=== PATIENT | female | born 1955 | race Caucasian/White ===

== ENCOUNTER 2020-06-12 16:13 | Observation (INO) ==
--- NOTE | 2020-06-12 16:49 | Emergency Department Note ---
History of Present Illness General Chief complaint: Visual Disturbance Stated complaint: VISION PROBLEMS Time Seen by Provider: 06/12/20 16:27 Source: patient Mode of arrival: ambulatory Limitations: no limitations History of Present Illness Maximum Pain Intensity: 0 This patient comes in after having visual issues since Monday. She says "my vision is doing strange things". She says that when she looked at a coworker it looked like they were colder squiggles near her head. When she is driving down the road and sees trees she says it moves them so they look like they are in the middle of the road. This occurs in both eyes and also each eye individually when she closes them so it is both monocular and binocular. No eye pain or other physical complaints. No headache or head trauma. She said on the way to the hospital she saw for hospitals. So it has been blurry to. She cannot identify any visual field cuts or particular aspect but it seems like his entire visual cruz. No history of similar. She wears reading glasses but not contacts. She is had no recent illness or fever or chills. No trauma. No focal numbness weakness. No difficulty speaking or swallowing. Normal gait. No neck pain or stiffness. No chest pain or shortness of breath or cough. No known exposure to COVID. No nausea or vomiting. She did have one episode of diarrhea. She says that if she closes her eyes and shakes her head she the symptoms do get better temporarily. She does have history of glaucoma but has had no eye pain. She is on no blood thinners. She talked her box spring maker in [place] who recommend she come here for neurologic work-up. Home Medications Home Medications Medication Instructions Recorded Confirmed Type aspirin [Aspir-81] 81 mg PO DAILY 06/12/20 06/12/20 History empagliflozin [Jardiance] 25 mg PO DAILY 06/12/20 06/12/20 History latanoprost 1 drp OPB PM 06/12/20 06/12/20 History levothyroxine 50 mcg PO DAILY 06/12/20 06/12/20 History lisinopril 20 mg PO DAILY 06/12/20 06/12/20 History metformin [Glucophage XR] 1,000 mg PO BID 06/12/20 06/12/20 History rosuvastatin [Crestor] 5 mg PO DAILY 06/12/20 06/12/20 History timolol maleate [Timoptic] 1 drp OPB DAILY 06/12/20 06/12/20 History Allergies Allergy/AdvReac Type Severity Reaction Status Date / Time codeine AdvReac Mild lethargy Verified 06/12/20 19:40 Past Med/Surg History Medical History Diabetic retinopathy Glaucoma HLD (hyperlipidemia) HTN (hypertension) Hypothyroidism T2DM (type 2 diabetes mellitus) Surgical History History of appendectomy History of cataract extraction History of colonoscopy with polypectomy History of tubal ligation Family History Mother Diabetes Congestive heart failure Brother Diabetes Grandfather (Maternal) Colorectal cancer Social History (Updated 06/12/20 @ 19:23 by Elizabet Ventura PA-C) Smoking Status: Never smoker Hx Alcohol Use: No Hx Substance Use: No Preferred Language: Persian Communication Ability: Effective Beliefs That Will Affect Care: None marital status: Current Living Situation: Family Current Living Situation Comment: son and grandchild Other Information That Helps Us Care for You: No Feels Safe at Home: Yes Assistive Devices: Denture - Upper and Glasses Immunizations: Past medical historyglaucoma, retinopathy. Diabetes for which she is on oral meds. Hypertension hypothyroidism. Social history-she does not smoke drink or use drugs. 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 Review of Systems A total of 10 systems reviewed and were otherwise negative Physical Exam Vital Signs Vital Signs - 24 hr 06/12/20 16:15 06/12/20 17:31 06/12/20 17:40 Temperature 36.8 C Temperature Source Oral Pulse Rate 83 76 77 Pulse Rate from SpO2 Sensor 76 77 Respiratory Rate 18 18 20 Blood Pressure 158/93 H 153/93 H Blood Pressure Mean 114 125 Pulse Oximetry 100 98 99 Oxygen Delivery Method Room Air Sepsis Recent Fever Within 48 Hours No Sepsis New/Unexplained Change in Mental Status No Sepsis Action Taken by Nursing No Action Required 06/12/20 17:50 06/12/20 18:00 06/12/20 18:10 Temperature Temperature Source Pulse Rate 77 77 80 Pulse Rate from SpO2 Sensor 77 77 80 Respiratory Rate 15 18 21 Blood Pressure 131/70 Blood Pressure Mean 102 Pulse Oximetry 98 98 98 Oxygen Delivery Method Sepsis Recent Fever Within 48 Hours Sepsis New/Unexplained Change in Mental Status Sepsis Action Taken by Nursing 06/12/20 18:31 06/12/20 18:40 06/12/20 18:50 Temperature Temperature Source Pulse Rate 77 75 Pulse Rate from SpO2 Sensor 80 76 75 Respiratory Rate 18 15 Blood Pressure Blood Pressure Mean Pulse Oximetry 96 97 97 Oxygen Delivery Method Sepsis Recent Fever Within 48 Hours Sepsis New/Unexplained Change in Mental Status Sepsis Action Taken by Nursing General: Well developed well nourished middle-age female who appears in no acute distress, breathing comfortably on room air. Normal speech HEENT: Normal cephalic atraumatic. Pupils are equal round and reactive to light. Extraocular movements are intact. Oropharynx is pink with moist mucous membranes. No swelling of the mouth lips or tongue. There is no injection of the sclera. The lids are normal bilaterally. When I check her visual cruz th ere appears to be no visual field cut. Neck: Supple with a midline trachea. No meningeal signs or stiffness, no JVD or bruits. No Stridor. Chest: Clear to auscultation bilaterally. No wheezes or rhonchi. No increased work of breathing. Heart: Regular rate and rhythm without murmurs or gallops. Abdomen: Soft nontender, nondistended without rebound guarding or rigidity. Extremities: No cyanosis clubbing or edema. No calf tenderness or assymetry Spine/Back. Non tender to palpation. No CVA tenderness Skin: Good turgor without rashes. Neurologic exam: Cranial nerves two through 12 are intact. Motor and sensation are intact and symmetrical throughout. [id number] is intact. No tremor Course Administered Medications Insulin Aspart (Insulin Aspart 100 Units/Ml 3 Ml Pen) 0 units SC ACHS LUCAS Stop: 07/12/20 20:59 Last Admin: 06/12/20 22:19 Dose: Not Given Documented by: [id number] Cosigned by: [id number] Latanoprost (Latanoprost 0.005% Op Soln 2.5 Ml Btl) 1 drops OPB PM LUCAS Stop: 07/12/20 20:59 Last Admin: 06/12/20 22:30 Dose: 1 drops Documented by: [id number] Discontinued Medications Aspirin (Aspirin 81 Mg Chew) 324 mg PO NOW STA Stop: 06/12/20 18:15 Last Admin: 06/12/20 18:19 Dose: 324 mg Documented by: [id number] Gadobutrol (Gadobutrol 65ml Vial) 6.3 ml IV ONCE ONE Stop: 06/12/20 22:08 Last Admin: 06/12/20 22:08 Dose: 6.3 ml Documented by: [id number] Potassium Chloride (Potassium Chloride 20 Meq Tabcr) 40 meq PO NOW STA Stop: 06/12/20 19:31 Last Admin: 06/12/20 19:43 Dose: 40 meq Documented by: [id number] Medical Decision Making Differential Diagnosis CVA, intracranial process, electrolyte or metabolic abnormality, glaucoma, eye disorder Medical Records Attestation: I reviewed the patient's medical records. Home Medications Current Medication List: was personally reviewed by me Laboratory Data Attestation: I reviewed the patient's lab results. Result diagrams: 06/12/20 16:50 06/12/20 16:50 Lab Results 06/12/20 06/12/20 06/12/20 Range/Units 16:50 16:50 16:50 WBC 6.00 (4.8-10.8) K/uL RBC 4.22 (4.2-5.4) M/uL Hgb 12.3 (12.0-16.0) g/dL Hct 38.0 (37-47) % MCV 90.0 (80-100) fL MCH 29.1 (25-34) pg MCHC 32.4 (32-36) g/dL RDW Std Deviation 43.6 (36.4-46.3) fL RDW Coeff of Adriana 13.3 (11.5-14.5) % Plt Count 266 (130-400) K/uL MPV 9.8 (7.4-10.4) fL Immature Gran % (Auto) 0.2 % Neut % (Auto) 55.1 % Lymph % (Auto) 34.5 % Crenshaw % (Auto) 8.3 % Eos % (Auto) 1.7 % Baso % (Auto) 0.2 % Neut # (Auto) 3.31 (1.4-6.5) K/uL Lymph # (Auto) 2.07 (1.2-3.4) K/uL Crenshaw # (Auto) 0.50 (0.11-0.59) K/uL Eos # (Auto) 0.10 (0-0.5) K/uL Baso # (Auto) 0.01 (0-0.2) K/uL Immature Gran # (Auto) 0.01 (0.00-0.02) K/uL ESR 41 H (0-21) mm/hr PT 10.3 (9.0-12.0) Seconds INR 1.0 (0.9-1.1) APTT 27.2 (21.0-31.0) Seconds PTT Ratio 1.0 Sodium (136-145) mmol/L Potassium (3.5-5.1) mmol/L Chloride (98-107) mmol/L Carbon Dioxide (21-32) mmol/L Anion Gap (3-11) BUN (7-18) mg/dl Creatinine (0.6-1.2) mg/dl Est Cr Clr Drug Dosing ml/min Est GFR ( Amer) Est GFR (Non-Af Amer) BUN/Creatinine Ratio (-20) Glucose (70-99) mg/dl Calcium (8.5-10.1) mg/dl Magnesium (1.8-2.4) mg/dl Total Bilirubin (0.2-1) mg/dl AST (15-37) U/L ALT (12-78) U/L Alkaline Phosphatase (45-117) U/L Troponin I (0-0.045) ng/ml C-Reactive Protein (0-0.29) mg/dl Total Protein (6.4-8.2) gm/dl Albumin (3.4-5.0) gm/dl Globulin (2.5-4.0) gm/dl Albumin/Globulin Ratio (0.9-2) TSH (0.300-4.500) uIu/ml 06/12/20 06/12/20 Range/Units 16:50 16:50 WBC (4.8-10.8) K/uL RBC (4.2-5.4) M/uL Hgb (12.0-16.0) g/dL Hct (37-47) % MCV (80-100) fL MCH (25-34) pg MCHC (32-36) g/dL RDW Std Deviation (36.4-46.3) fL RDW Coeff of Adriana (11.5-14.5) % Plt Count (130-400) K/uL MPV (7.4-10.4) fL Immature Gran % (Auto) % Neut % (Auto) % Lymph % (Auto) % Crenshaw % (Auto) % Eos % (Auto) % Baso % (Auto) % Neut # (Auto) (1.4-6.5) K/uL Lymph # (Auto) (1.2-3.4) K/uL Crenshaw # (Auto) (0.11-0.59) K/uL Eos # (Auto) (0-0.5) K/uL Baso # (Auto) (0-0.2) K/uL Immature Gran # (Auto) (0.00-0.02) K/uL ESR (0-21) mm/hr PT (9.0-12.0) Seconds INR (0.9-1.1) APTT (21.0-31.0) Seconds PTT Ratio Sodium 139 (136-145) mmol/L Potassium 3.4 L (3.5-5.1) mmol/L Chloride 103 (98-107) mmol/L Carbon Dioxide 29 (21-32) mmol/L Anion Gap 7.0 (3-11) BUN 10 (7-18) mg/dl Creatinine 0.93 (0.6-1.2) mg/dl Est Cr Clr Drug Dosing 56.5 ml/min Est GFR ( Amer) 74.7 Est GFR (Non-Af Amer) 64.5 BUN/Creatinine Ratio 11.0 (10-20) Glucose 108 H (70-99) mg/dl Calcium 9.9 (8.5-10.1) mg/dl Magnesium 2.0 (1.8-2.4) mg/dl Total Bilirubin 0.4 (0.2-1) mg/dl AST 18 (15-37) U/L ALT 18 (12-78) U/L Alkaline Phosphatase 85 (45-117) U/L Troponin I 0.103 H* (0-0.045) ng/ml C-Reactive Protein < 0.29 (0-0.29) mg/dl Total Protein 7.8 (6.4-8.2) gm/dl Albumin 3.5 (3.4-5.0) gm/dl Globulin 4.3 H (2.5-4.0) gm/dl Albumin/Globulin Ratio 0.8 L (0.9-2) TSH 2.450 (0.300-4.500) uIu/ml ECG Data Attestation: I personally reviewed and interpreted this ECG as follows: Indication: + other (Neurologic symptoms) Rate (beats per minute): 78 Rhythm: + normal sinus ECG Intervals/blocks: + Normal QRS, + Normal QT and + Normal VT ECG [place]: + Normal ECG ST segments: + Normal ST segments ECG Findings: no PACs and no PVCs Comparison ECG Date: no prior available MDM Narrative The patient comes in scribed above she has had visual changes that are both monocular and binocular. She says she feels fine at present. She has no other neurologic deficits. She appears to have no visual field cut. She has glaucoma but her eyes appear to be normal. IV access was established. EKG multiple blood testing was obtained. CAT scan of her head was also obtained. She was reassessed frequently. I did measure eye pressure was not elevated at 21 bilaterally. She has no fever or white count to suggest infection. She has an nonischemic normal-appearing EKG however her troponin was mildly elevated. CAT scan of her head is unremarkable and she has a normal neurologic exam. She has no acute electrolyte or metabolic abnormalities. I talked her at length, given her mildly elevated troponin as well as her visual change I do think she needs to be admitted/observe for further cardiac/neurologic work-up. She may ultimately MRI and also trending of her troponin. I did give her aspirin 324 mg chewable here. I will consult [facility] team to see her in the ER for these measures. Impression & Plan Visual changes, Elevated troponin, HTN (hypertension), T2DM (type 2 diabetes mellitus) Discharge Plan Visit Data Chief Complaint: Visual Disturbance Stated Complaint: VISION PROBLEMS ED Provider: Brent Godwin Discharge Problem: Visual changes, Elevated troponin, HTN (hypertension), T2DM (type 2 diabetes mellitus) Patient Disposition: Admitted As Inpatient Discharge Instructions Interventions: ED Discharge Assessment Last Done: 06/12/20 19:32 Discharge Problem: HTN (hypertension) Qualifiers: Hypertension type: essential hypertension Qualified Code(s): I10 - Essential (primary) hypertension T2DM (type 2 diabetes mellitus) Qualifiers: 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
[2020-06-12 16:57] LABS: Basophils # (auto) 0.01 K/uL (0-0.2); Basophils % (auto) 0.2 %; Eosinophils % (auto) 1.7 %; Hemoglobin 12.3 g/dL (12.0-16.0); Immature Granulocytes # (auto) 0.01 K/uL (0.00-0.02); Immature Granulocytes % (auto) 0.2 %; Lymphocytes # (auto) 2.07 K/uL (1.2-3.4); Lymphocytes % (auto) 34.5 %; Mean Corpuscular Hemoglobin 29.1 pg (25-34); Mean Corpuscular Hgb Conc 32.4 g/dL (32-36); Mean Platelet Volume 9.8 fL (7.4-10.4); Monocytes % (auto) 8.3 %; Neutrophils # (auto) 3.31 K/uL (1.4-6.5); Neutrophils % (auto) 55.1 %; Platelet Count 266 K/uL (130-400); RDW Coefficient of Variation 13.3 % (11.5-14.5); RDW Standard Deviation 43.6 fL (36.4-46.3); Red Blood Count 4.22 M/uL (4.2-5.4)
[2020-06-12 17:09] LABS: Partial Thromboplastin Time 27.2 Seconds (21.0-31.0); Prothrombin Time 10.3 Seconds (9.0-12.0)
--- NOTE | 2020-06-12 17:10 | CT Scan Report ---
CT head/brain wo con CLINICAL HISTORY: Stroke evaluation VISUAL DISTURBANCES COMPARISON STUDY: No previous studies for comparison. TECHNIQUE: Axial CT of the brain is performed from the vertex to the skull base. IV contrast was not administered for this examination. A dose lowering technique was utilized adhering to the principles of ALARA. CT DOSE: 638.56 mGycm FINDINGS: No intra or extra-axial mass lesions are visualized. There is no CT evidence of acute cortical infarc tion. There is no evidence of midline shift. There is no acute hemorrhage. No calvarial fractures ar e visualized. There are patchy white matter hypodensities likely on a small vessel basis. There is no evidence of pathologic ventricular dilatation. There is no evidence of acute sinusitis IMPRESSION: No acute intracranial findings ACT 112: Negative or not required by law. Electronically signed by: Jose Elias Guzman M.D. 06/12/2020 5:09 PM
[2020-06-12 17:14] LABS: Albumin Level 3.5 gm/dl (3.4-5.0); Calcium 9.9 mg/dl (8.5-10.1); Creatinine Clr Calc Pharmacy 56.5 ml/min; Est GFR (African American) 74.7; Est GFR (Non-African American) 64.5; Potassium 3.4 mmol/L (3.5-5.1)
[2020-06-12 17:29] LABS: Albumin Globulin Ratio 0.8 (0.9-2); Bilirubin,Total 0.4 mg/dl (0.2-1); Globulin 4.3 gm/dl (2.5-4.0); Total Protein 7.8 gm/dl (6.4-8.2); Troponin I 0.103 ng/ml (0-0.045)
[2020-06-12] MEDS ORDERED: ASPIRIN 81 MG CHEW PO STA (18:14)
--- NOTE | 2020-06-12 19:23 | History & Physical Report ---
Date of Service June 12, 2020 Assessment & Plan (1) Visual changes: This is a 64-year-old female who has significant past medical history of T2DM, diabetic retinopathy, glaucoma, HTN, HLD, hypothyroidism who presents to ED secondary to visual change x2 days. Complaints consistent with blurred vision and diplopia. No visual field deficit elicited. No eye pain, otorrhea, redness. Her pressures okay. Currently denies sx. admit to tele obtain MRI brain if abnormal consult Neuro obtain a1c/lipid panel in a.m. 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 Hold metformin and Jardiance BSG 108 - place on novolog protocol (4) HTN (hypertension): Blood pressure control Continue lisinopril (5) HLD (hyperlipidemia): Continue statin (6) Glaucoma: Continue timolol and latanoprost (7) Hypothyroidism: Continue levothyroxine Check TSH (8) DVT prophylaxis: SCD/Teds Disposition: admit to tele Follow up: PCP Dr. Alvarenga upon discharge along with close ophthalmology follow-up Patient seen and examined in collaboration with Dr. Jim, please see addendum History of Present Illness Chief Complaint: Visual change x 2 days. Primary Care Provider: Gale Alvarenga, This is a 64-year-old female who has significant past medical history of T2DM, diabetic retinopathy, glaucoma, HTN, HLD, hypothyroidism who presents to ED secondary to visual change x2 days. She elicits for the past 2 days she has had off and on visual changes. She notices them mostly whenever she is driving down the road. She feels like the trees on the left-hand side change color. She also says the trees then move to the middle of the road. It occurs in both eyes and each eye when she tries to close one eye. Denies trauma. She also elicits blurry vision. She also complains of blurry and double vision. She states when she shakes her head symptoms go away. They come and they go. She does not typically elicit them at rest or if ambulating. She has never similar symptoms in the past. She does have history of diabetic retinopathy and glaucoma this appears different. She did call her eye. Dr. Larisa Garcia who recommended ER evaluation. Other than visual changes she has been in her usual state of health. When she does get the visual change she has been monitoring her blood sugar which was in the 90s. She denies any recent fever, chills, sweats, lightheadedness, dizziness, change in hearing, eye pain, excessive eye tearing or redness, chest pain, shortness breath, cough, nausea, vomiting, abdominal pain, change her bowel or urinary habits. In ED patient remained hemodynamically stable. Per ED provider her eye pressures were within normal limits. There were no visual field cuts or deficits. Currently patient denies any visual changes. Her CBC was generally unremarkable, mild elevation ESR 41, K 3.4, glucose 108, elevated troponin 0.103. She had a head CT which was negative for any acute cranial abnormality. In ED she received ASA 3251. He is recommended for inpatient mission due to new onset and acute visual changes as well as elevated troponin despite EKG c hanges or chest pain. Allergies Allergy/AdvReac Type Severity Reaction Status Date / Time codeine AdvReac Mild lethargy Verified 06/12/20 19:40 Home Medications Home Medications Medication Instructions Recorded Confirmed Type aspirin [Aspir-81] 81 mg PO DAILY 06/12/20 06/12/20 History empagliflozin [Jardiance] 25 mg PO DAILY 06/12/20 06/12/20 History latanoprost 1 drp OPB PM 06/12/20 06/12/20 History levothyroxine 50 mcg PO DAILY 06/12/20 06/12/20 History lisinopril 20 mg PO DAILY 06/12/20 06/12/20 History metformin [Glucophage XR] 1,000 mg PO BID 06/12/20 06/12/20 History rosuvastatin [Crestor] 5 mg PO DAILY 06/12/20 06/12/20 History timolol maleate [Timoptic] 1 drp OPB DAILY 06/12/20 06/12/20 History Past Med/Surg History Medical History Diabetic retinopathy Glaucoma HLD (hyperlipidemia) HTN (hypertension) Hypothyroidism T2DM (type 2 diabetes mellitus) Surgical History History of appendectomy History of cataract extraction History of colonoscopy with polypectomy History of tubal ligation Family History Mother Diabetes Congestive heart failure Brother Diabetes Grandfather (Maternal) Colorectal cancer Social History (Updated 06/12/20 @ 19:23 by Elizabet Ventura PA-C) Smoking Status: Never smoker Hx Alcohol Use: No Hx Substance Use: No Preferred Language: Divehi marital status: Current Living Situation: Family Current Living Situation Comment: son and grandchild Feels Safe at Home: Yes Review of Systems Review of Systems: All systems reviewed & are unremarkable except as noted in HPI & below Physical Exam Physical Exam: Constitutional: WD/WN, F, vitals as above, NAD, sitting up in bed, pleasant, conversing easily Head: Normocephalic, Atraumatic Eyes: PERRL, no field deficits, no eye pain, no redness or tearing, conjunctivae normal, anicteric sclerae ENMT: external ear and nose normal, oropharynx normal Neck: trachea midline, no thyromegaly normal visual inspection Respiratory: normal respiratory effort, lungs clear to auscultation, no wheeze, rales, rhonchi. Normal insp/exp effort, no accessory muscle use Cardiovascular: RRR, no murmur, no edema Vessels: no JVD or carotid bruit Chest: normal inspection of chest Abdomen: normal bowel sounds, soft, nontender, no hepatosplenomegaly Musculoskeletal: no cyanosis or clubbing, extremities motor strength 5/5 Skin: no rashes, warm and dry normal turgor Neurologic: PERRL, EOMI, accommodation nl, no face palsy, no dysarthria CN's II-XI intact bilaterally and moves all extremities Psychiatric: A+Ox3, euthymic affect Lymphatic: no cervical or axillary lymphadenopathy : deferred Results & Data Results & Data (MN) Vital Signs (Past 12 Hours) Vital Signs Temp Pulse Resp BP Pulse Ox 06/12/20 18:50 75 15 97 06/12/20 18:40 77 18 97 06/12/20 18:31 96 06/12/20 18:10 80 21 98 06/12/20 18:00 77 18 131/70 98 06/12/20 17:50 77 15 98 06/12/20 17:40 77 20 99 06/12/20 17:31 76 18 153/93 H 98 06/12/20 16:15 36.8 C 83 18 158/93 H 100 Laboratory Results Short CBC 06/12/20 06/12/20 Range/Units 16:50 16:50 WBC 6.00 (4.8-10.8) K/uL Hgb 12.3 (12.0-16.0) g/dL Hct 38.0 (37-47) % Plt Count 266 (130-400) K/uL Troponin I 0.103 H* (0-0.045) ng/ml BMP 06/12/20 16:50 Sodium 139 Potassium 3.4 L Chloride 103 Carbon Dioxide 29 BUN 10 Creatinine 0.93 Glucose 108 H Calcium 9.9 Cardiac Enzymes 06/12/20 Range/Units 16:50 Troponin I 0.103 H* (0-0.045) ng/ml Liver Function 06/12/20 Range/Units 16:50 Total Bilirubin 0.4 (0.2-1) mg/dl AST 18 (15-37) U/L ALT 18 (12-78) U/L Alkaline Phosphatase 85 (45-117) U/L Albumin 3.5 (3.4-5.0) gm/dl Diagnostic Findings Head CT: FINDINGS: No intra or extra-axial mass lesions are visualized. There is no CT evidence of acute cortical infarction. There is no evidence of midline shift. There is no acute hemorrhage. No calvarial fractures are visualized. There are patchy white matter hypodensities likely on a small vessel basis. There is no evidence of pathologic ventricular dilatation. There is no evidence of acute sinusitis IMPRESSION: No acute intracranial findings Medications Administered Discontinued Medications Aspirin (Aspirin 81 Mg Chew) 324 mg PO NOW STA Stop: 06/12/20 18:15 Last Admin: 06/12/20 18:19 Dose: 324 mg Documented by: [id number] ECG Rate (beats per minute): 78 Rhythm: normal sinus Code Status & VTE Plan Code Status Full Code VTE Prophylaxis Plan VTE Prophylaxis will be ordered: Yes Supervising Physician Co-Signing Physician Notes I, Ramana Jim, have seen and examined the Gale John and also discussed the plans with physician kindergarten teacher assistant On physical exam General: no acute distress Heart: regular rate, EKG in sinus rhythm Lungs: clear to auscultation bilaterally, no wheezing, on room air Abdomen: soft, nontender, positive bowel sounds Neuro: no facial droop, speaks in full sentences, pupils reactive to light, extraoccular movements appear intact in all directions, however patient has some appears of Exophthalmos Assessment and Plan -main issue is that this is 69 year old female patient with diabetes mellitus who has been having blurred vision starting on Monday06/10/2020 which for example, she describes of seeing the trees on the right side of the road in the middle of field of vision. -no abnormalities by Head CT, Obtain MRI on the brain -patient denies chest pain or shortness of breath. Initial troponin was elevated around 0.1. trend the troponins, monitor on telemetry to rule out any arrhythmia, obtain echocardiogram -patient reports she checks her blood glucose when she has the blurred vision, patient denies hypoglycemic episodes when visual symptoms happen - Extra-occular movements appears intact. However patient has some appears of Exophthalmos. Patient takes thyroid supplementation for hypothyroidism, check thyroid function levels -patient reports the visual disturbances temporarily improves when she shakes her head side to side. Patient denies associated symptoms of headaches, of vomiting, of fever, of chest pain or of shortness of breath when visual disturbances occur -patient advised to not drive a motor vehicle at this time. Patient advised to follow up with her eye doctor after the end of this hospital evaluation -agree with other assessment and plans as documented by physician kindergarten teacher assistant -My colleague Dr. Salazar will be the hospitalist attending starting on 06/13/2020
[2020-06-12] MEDS ORDERED: POTASSIUM CHLORIDE 20 MEQ TABCR PO STA (19:30)
[2020-06-12] MEDS ORDERED: ONDANSETRON INJ 2 MG/ML 2 ML VIAL IV PRN (19:53)
[2020-06-12] MEDS ORDERED: CARBOHYDRATES FOR HYPOGLYCEMIA PO PRN (19:53)
[2020-06-12] MEDS ORDERED: GLUCAGON FOR INJ 1 MG VIAL SQ PRN (19:53)
[2020-06-12] MEDS ORDERED: DEXTROSE 50% 50 ML SYRINGE IV PRN (19:53)
[2020-06-12] MEDS ORDERED: MAGNESIUM HYDROXIDE SUSP 30 ML UDC PO PRN (19:53)
[2020-06-12] MEDS ORDERED: GLUCOSE 40% GEL 15 GM TUBE PO PRN (19:53)
[2020-06-12] MEDS ORDERED: ACETAMINOPHEN 325 MG TAB PO PRN (19:53)
[2020-06-12] MEDS ORDERED: ALUMINUM/MAGNESIUM SUSP 30 ML UDC PO PRN (19:53)
[2020-06-12] MEDS ORDERED: POLYETHYLENE (MIRALAX) 17 GM PACK PO PRN (19:53)
[2020-06-12] MEDS ORDERED: GLUCOSE 10 TABS/TUBE PO PRN (19:53)
[2020-06-12 20:01] LABS: C Reactive Protein < 0.29 mg/dl (0-0.29)
[2020-06-12] MEDS ORDERED: LATANOPROST 0.005% OP SOLN 2.5 ML BTL OPB SCH (21:00)
[2020-06-12] MEDS ORDERED: GADOBUTROL 65ML VIAL IV ONE (22:07)
[2020-06-12] MEDS: INSULIN ASPART 100 UNITS/ML 3 ML PEN SC SCH (22:19)
[2020-06-13 04:33] LABS: Hematocrit (blood only) 35.1 % (37-47); Hemoglobin 11.5 g/dL (12.0-16.0); Mean Corpuscular Hemoglobin 29.5 pg (25-34); Mean Corpuscular Hgb Conc 32.8 g/dL (32-36); Mean Platelet Volume 9.6 fL (7.4-10.4); Platelet Count 230 K/uL (130-400); RDW Coefficient of Variation 13.4 % (11.5-14.5); White Blood Count 4.19 K/uL (4.8-10.8)
[2020-06-13 04:50] LABS: BUN Creatinine Ratio 12.9 (10-20); Calcium 8.7 mg/dl (8.5-10.1); Creatinine Clr Calc Pharmacy 71.9 ml/min; Est GFR (African American) 100.2; Est GFR (Non-African American) 86.4; Potassium 3.6 mmol/L (3.5-5.1)
[2020-06-13] MEDS ORDERED: LEVOTHYROXINE SODIUM 50 MCG TABLET PO SCH (06:30)
[2020-06-13 07:02] LABS: Estimated Average Glucose 223 mg/dl; Hemoglobin A1C 9.4 % (4.5-5.6)
[2020-06-13] MEDS: INSULIN ASPART 100 UNITS/ML 3 ML PEN SC SCH ×2 (08:21→12:10)
--- NOTE | 2020-06-13 08:22 | Magnetic Resonance Report ---
MRI OF THE BRAIN WITHOUT AND WITH IV CONTRAST CLINICAL HISTORY: visual changes POSSIBLE STROKE OR INTRACRANIAL MASS COMPARISON STUDY: Noncontrast head CT dated 06/12/2020 TECHNIQUE: MRI of the brain was performed from the vertex to the skull base utilizing various T1 and T2 weighted sequences. Following the IV administration of 6.3 mL of Gadavist contrast, additional enh anced images were obtained. FINDINGS: Sagittal T1, axial diffusion, proton density and T2 weighted axial, coronal FLAIR, and pre and post a xial T1-weighted images were acquired. These were supplemented with post gadolinium coronal T1 weight ed images. No intra or extra-axial mass lesions are visualized. Axial diffusion-weighted images reveal no evidence of acute or subacute infarction. There is no evidence of ventricular dilatation. Proton density T2-weighted and FLAIR images reveal scattered foci of increased T2 signal within the w milady matter, likely on a small vessel basis. There are no abnormal flow voids. There is no evidence of pathologic enhancement. IMPRESSION: 1. No acute intracranial findings 2. No evidence of intracranial mass 3. No evidence of acute or subacute infarction ACT 112: Negative or not required by law. Electronically signed by: Jose Elias Guzman M.D. 06/13/2020 8:21 AM
[2020-06-13] MEDS ORDERED: lisinopriL 20 MG TAB PO SCH (09:00)
[2020-06-13] MEDS ORDERED: ROSUVASTATIN CALCIUM 5 MG TAB PO SCH (09:00)
[2020-06-13] MEDS ORDERED: ASPIRIN 81 MG ECTAB PO SCH (09:00)
[2020-06-13] MEDS ORDERED: TIMOLOL MALEATE 0.25% OP SOLN 5 ML BTL OPB SCH (09:00)
--- NOTE | 2020-06-13 10:50 | Electrocardiogram Report ---
Test Reason : Blood Pressure : / mmHG Vent. Rate : 078 BPM Atrial Rate : 078 BPM P-R Int : 130 ms QRS Dur : 094 ms QT Int : 390 ms P-R-T Axes : 039 005 104 degrees QTc Int : 444 ms Normal sinus rhythm Low voltage QRS Nonspecific ST abnormality Abnormal ECG No previous ECGs available Confirmed by Steven Yanes ([id number]) on 06/13/2020 10:49:55 AM Referred By: REFERRED SELF Confirmed By:Alexander Yanes
--- NOTE | 2020-06-13 13:58 | Discharge Summary ---
Date of Service June 13, 2020 Admission HPI Per Admitting Provider This is a 64-year-old female who has significant past medical history of T2DM, diabetic retinopathy, glaucoma, HTN, HLD, hypothyroidism who presents to ED secondary to visual change x2 days. She elicits for the past 2 days she has had off and on visual changes. She notices them mostly whenever she is driving down the road. She feels like the trees on the left-hand side change color. She also says the trees then move to the middle of the road. It occurs in both eyes and each eye when she tries to close one eye. Denies trauma. She also elicits blurry vision. She also complains of blurry and double vision. She states when she shakes her head symptoms go away. They come and they go. She does not typically elicit them at rest or if ambulating. She has never similar symptoms in the past. She does have history of diabetic retinopathy and glaucoma this appears different. She did call her eye. Dr. Larisa Garcia who recommended ER evaluation. Other than visual changes she has been in her usual state of health. When she does get the visual change she has been monitoring her blood sugar which was in the 90s. She denies any recent fever, chills, sweats, lightheadedness, dizziness, change in hearing, eye pain, excessive eye tearing or redness, chest pain, shortness breath, cough, nausea, vomiting, abdominal pain, change her bowel or urinary habits. In ED patient remained hemodynamically stable. Per ED provider her eye pressures were within normal limits. There were no visual field cuts or deficits. Currently patient denies any visual changes. Her CBC was generally unremarkable, mild elevation ESR 41, K 3.4, glucose 108, elevated troponin 0.103. She had a head CT which was negative for any acute cranial abnormality. In ED she received ASA 3251. He is recommended for inpatient mission due to new onset and acute visual changes as well as elevated troponin despite EKG changes or chest pain. Admission Exam Per Admitting Provider Constitutional: WD/WN, F, vitals as above, NAD, sitting up in bed, pleasant, conversing easily Head: Normocephalic, Atraumatic Eyes: PERRL, no field deficits, no eye pain, no redness or tearing, conjunctivae normal, anicteric sclerae ENMT: external ear and nose normal, oropharynx normal Neck: trachea midline, no thyromegaly normal visual inspection Respiratory: normal respiratory effort, lungs clear to auscultation, no wheeze, rales, rhonchi. Normal insp/exp effort, no accessory muscle use Cardiovascular: RRR, no murmur, no edema Vessels: no JVD or carotid bruit Chest: normal inspection of chest Abdomen: normal bowel sounds, soft, nontender, no hepatosplenomegaly Musculoskeletal: no cyanosis or clubbing, extremities motor strength 5/5 Skin: no rashes, warm and dry normal turgor Neurologic: PERRL, EOMI, accommodation nl, no face palsy, no dysarthria CN's II-XI intact bilaterally and moves all extremities Psychiatric: A+Ox3, euthymic affect Lymphatic: no cervical or axillary lymphadenopathy : deferred Principal Diagnosis Visual abnormalities Discharge Exam Constitutional well nourished and + well hydrated; no acute distress Eyes normal visual cruz by confrontation, PERRL and EOM intact bilaterally; normal light reflex ENMT external ear and nose normal, oropharynx normal Respiratory normal respiratory effort, lungs clear to auscultation Cardiovascular RRR, no murmur, no edema Gastrointestinal (Abdomen) normal bowel sounds, soft, nontender, no hepatosplenomegaly Musculoskeletal no cyanosis or clubbing, extremities motor strength 5/5 Neurologic PERRL, EOMI, accommodation nl, no face palsy, no dysarthria Psychiatric A+Ox3, euthymic affect Discharge Data Allergies Allergy/AdvReac Type Severity Reaction Status Date / Time codeine AdvReac Mild lethargy Verified 06/12/20 19:40 Consultations 06/12/20 18:47 ED Decision to Admit Stat Ordered Studies 06/12/20 16:41 CT head/brain wo con Stat FINDINGS: No intra or extra-axial mass lesions are visualized. There is no CT evidence of acute cortical infarction. There is no evidence of midline shift. There is no acute hemorrhage. No calvarial fractures are visualized. There are patchy white matter hypodensities likely on a small vessel basis. There is no evidence of pathologic ventricular dilatation. There is no evidence of acute sinusitis IMPRESSION: No acute intracranial findings 06/12/20 19:14 MR brain wo/w con Routine Sagittal T1, axial diffusion, proton density and T2 weighted axial, coronal FLAIR, and pre and post axial T1-weighted images were acquired. These were sup plemented with post gadolinium coronal T1 weighted images. No intra or extra-axial mass lesions are visualized. Axial diffusion-weighted images reveal no evidence of acute or subacute infarction. There is no evidence of ventricular dilatation. Proton density T2-weighted and FLAIR images reveal scattered foci of increased T2 signal within the white matter, likely on a small vessel basis. There are no abnormal flow voids. There is no evidence of pathologic enhancement. IMPRESSION: 1. No acute intracranial findings 2. No evidence of intracranial mass 3. No evidence of acute or subacute infarction Hospital Course (1) Visual changes: 64-year-old female who has significant past medical history of T2DM, diabetic retinopathy, glaucoma, HTN, HLD, hypothyroidism who presents to ED secondary to visual change x2 days. Complaints consistent with blurred vision and diplopia. No visual field deficit elicited. No eye pain, otorrhea, redness. CT head and MRI brain did not show any CVA Possibilities include progression of diabetic retinopathy, glaucoma Low suspicion for TIA Patient has an appointment with ophthal on monday Discussed all work up findings with patient. Advised strongly not to drive due to reports of seeing the trees lining the street in the middle of the road and even difficulty focusing [employer] form filled for revocation of license until cleared by Ophthalmology. Give work note till patient sees ophthalmology since she drives to work She is ok with this and stated Son will drive her until cleared by her Director Of Casework Department (2) Elevated troponin: Patient had mildly elevated troponin 0.103-->0.135 No chest pain or ACS equivalent EKG unremarkable Echo- EF 55-60, normal LV/RV/atrial size and function. Discussed patient with Rn Ortho. Dr Dong. No further work up needed at this time (3) T2DM (type 2 diabetes mellitus): Uncontrolled T2DM with diabetic retinopathy Last A1c 9.5 02/18/2020 A1c is 9.4 Blood glucose controlled while inpatient Provided DM education including need for optimization of diet, exercise Continue metformin and jardiance. Patient will follow up with PCP May need insulin if current regimen does not get DM under control (4) HTN (hypertension): Continue lisinopril (5) HLD (hyperlipidemia): Continue statin (6) Glaucoma: Continue timolol and latanoprost (7) Hypothyroidism: Continue levothyroxine Total Time Total Time Spent Total Time Spent (In Minutes): 40 Total Time Includes: Examination of the Patient, Discharge Planning, Medication Reconciliation and Communication With Other Providers Discharge Plan Discharge Items Patient Disposition: Home - Self-Care Reason For Visit: VISION CHANGES Discharge Diagnosis: Visual abnormalities Activity: Resume your previous activity Driving/Machine Use: DO NOT DRIVE UNTIL CLEARED BY CHEMIST INORGANIC Non-emergency contact: Primary Care Provider and Director Of Casework Department Call non-emergency contact if: you have any medication questions and your symptoms worsen Follow-up/Referrals: Gale Alvarenga, [Primary Care Provider] - 06/17/20 2:05 pm Diet: Carb Consistent or DM2 and Heart Healthy Addtl Attending Provider Instructions: Ms John. You came to the hospital complaining of visual abnormalities. You were evaluated with scans and blood tests MRI and CT did not show a stroke. It is very important that you follow up with Director Of Casework Department within the week for further testing and evaluation. PLEASE DO NOT DRIVE UNTIL CLEARED BY THE CHEMIST INORGANIC. It was a pleasure taking care of you. Pending Studies at Discharge: No Stand-Alone Forms: My [facility] Dispatch, Work/School Release (Inpt), Smoking Cessation Medications and DC Order Prescriptions: Continued lisinopril 20 mg Tablet 20 mg PO DAILY RF: 0 aspirin 81 mg Tablet,Delayed Release (Dr/Ec) 81 mg PO DAILY RF: 0 levothyroxine 50 mcg Tablet 50 mcg PO DAILY RF: 0 timolol maleate [Timoptic] 0.5 % Drops 1 drp OPB DAILY RF: 0 metformin [Glucophage XR] 500 mg Tablet Extended Release 24 Hr 1,000 mg PO BID RF: 0 rosuvastatin [Crestor] 5 mg Tablet 5 mg PO DAILY RF: 0 Jardiance 25 mg Tablet 25 mg PO DAILY RF: 0 latanoprost 0.005 % Drops, Emulsion 1 drp OPB PM RF: 0 Discharge Orders: Discharge Order (Routine); Ordered 06/13/20 Ordered By: Mila Barraza/Other Patient Handouts: Diabetic Retinopathy Evaluate Eyes, What Is Diabetic Retinopathy?, Treating Diabetic Retinopathy Admission Data Admit Date/Time: 06/12/20 19:20 Attending Provider: Mila Salazar I. Admit Provider: Ramana Jim Primary Care Provider: Gale Alvarenga Other Providers: Jim,Ramana K. Other Interventions: Discharge Summary Assessment (RN) Last Done: 06/13/20 14:13
--- NOTE | 2020-06-13 17:25 | Electrocardiogram Report ---
Test Reason : Blood Pressure : / mmHG Vent. Rate : 076 BPM Atrial Rate : 076 BPM P-R Int : 138 ms QRS Dur : 090 ms QT Int : 386 ms P-R-T Axes : 038 -03 121 degrees QTc Int : 434 ms Normal sinus rhythm Low voltage QRS Nonspecific ST abnormality Abnormal ECG When compared with ECG of 12-JUN-2020 17:30, No significant change was found Confirmed by Steven Yanse ([id number]) on 06/13/2020 5:25:44 PM Referred By: REFERRED SELF Confirmed By:Alexander Yanes
== END 2020-06-13 14:44 | disposition home or self-care (01) ==
LOC: ED 16:13 → 2S 16:13 → SUATTDRO 19:20 → 2S 19:32